=== PATIENT | female | born 1980 ===

== ENCOUNTER 2023-01-10 18:26 | Emergency (ER) | payer OTHER ==
--- OUTSIDE RECORDS SUMMARY | 2023-01-10 18:30 | XMS REPORT | Continuity of Care Document ---
:1980 Author Organization [facility] Address [address] [facility] [address] [place] [id number] Care Team Providers Name Role Phone KEFFER_A Attending Clinician Unavailable keffer_a Attending Clinician Unavailable KEFFER_A Admitting Clinician Unavailable emelynffer_a Admitting Clinician Unavailable Payers Payer Name Policy Type Policy Number Effective Date Expiration Date S ource Problems This patient has no known problems. Allergies, Adverse Reactions, Alerts This patient has no known allergies or adverse reactions. Medications This patient has no known medications. Procedures This patient has no known procedures. Encounters Start End Encounter Admission Attending Care Care Encounter Source Date/Time Date/Time Type Type Clinicians Facility Department ID 2022-08-22 2022-08-22 Outpatient [facility] [id number] [place] 00:00:00 00:00:00 [facility] 2020-06-21 2020-06-21 Outpatient [facility] [place] 02:25:00 02:25:00 [id number] Results This patient has no known results.
[2023-01-10] MEDS ORDERED: KETOROLAC 30 MG/ML INJ ONE (20:40)
[2023-01-10] MEDS ORDERED: FAMOTIDINE 20 MG/2 ML VIAL IV ONE (20:40)
[2023-01-10] MEDS ORDERED: ONDANSETRON 4 MG/2 ML VIAL ONE (20:40)
[2023-01-10] MEDS ORDERED: NA CHLORIDE 0.9% 1,000 ML ONE (20:40)
[2023-01-10 20:41] LABS: Absolute Lymphocytes (CBC) 1.8 K/uL (0.7-4.9); Hematocrit 37.3 % (36.0-45.0); Lymphocytes % 16.4 % (15.3-44.8); MCV 86.4 fL (80-100); MPV 8.1 fL (7.6-11.3); RBC Red Blood Cell Count 4.31 M/uL (3.86-4.86)
[2023-01-10 20:53] LABS: Specific Gravity 1.005 (1.005-1.030); Urine Bacteria <20 /HPF (<20); Urine Bilirubin NEGATIVE (Negative); Urine Blood Trace (Negative); Urine Clarity Turbid (Clear); Urine Color Colorless (Yellow); Urine Glucose NEGATIVE (Negative); Urine Protein NEGATIVE (Negative); Urine RBC <5 /HPF (None Seen); Urine Urobilinogen Normal (Normal)
[2023-01-10 20:57] LABS: Specific Gravity 1.005 (1.005-1.030)
[2023-01-10 20:59] LABS: Albumin 3.9 g/dL (3.4-5.0); Bilirubin Total 0.3 mg/dL (0.2-1.0); Potassium 3.3 mEq/L (3.5-5.1)
--- NOTE | 2023-01-10 21:28 | RAD REPORT ---
EXAM DESCRIPTION: CT - Abdomen Pelvis W Contrast - 01/10/2023 9:17 pm CLINICAL HISTORY: Abdominal pain COMPARISON: none. TECHNIQUE: Computed axial tomography of the abdomen pelvis was obtained. 95 cc Isovue-300 was admini stered intravenously. Oral contrast was not requested which limits evaluation of bowel and appendix All CT scans are performed using dose optimization technique as appropriate and may include automated exposure control or mA/KV adjustment according to patient size. FINDINGS: The liver, spleen, pancreas, adrenal and kidneys appear unremarkable. There is no evidence of diverticulitis. 5.6 centimeter right ovarian cystic mass contains a septation. No significant free fluid Mild bladder distention Moderate amount stool within the colon Small umbilical hernia IMPRESSION: 5.6 centimeter right ovarian cystic mass contains a septation. No significant free fluid . This probably represents a benign complex cyst. An ovarian cystadenoma is less likely. Followup ult rasound in 2 months recommended for re-evaluation Mild bladder distention
--- NOTE | 2023-01-10 22:34 | RAD REPORT ---
EXAM DESCRIPTION: US - Transvaginal Study Probe - 01/10/2023 10:16 pm CLINICAL HISTORY: Pelvic pain COMPARISON: none FINDINGS: The uterus measures 7 x 3 x 4 cm. A fibroid is not seen. The endometrial stripe measures 8 millimeters. A fibroid is not seen. Nabothian cysts within the cervix. Left ovary normal in size and echotexture. Left adnexal unremarkable 6 centimeter complex cystic structure right ovary containing septations and areas increased echogeni city. There is questionable internal blood flow. There is blood flow to the periphery. No evidence of torsion No significant free fluid is seen. IMPRESSION: 6 centimeter complex cystic mass right adnexa may represent a hemorrhagic cyst. An ovari an cystadenoma is another consideration. It is recommended patient a follow up ultrasound in 2 months for re-evaluation
--- NOTE | 2023-01-10 22:43 | ER ---
Nurse's Notes [facility] Name: Cammy Mchugh Age: 42 yrs Sex: Female : 1980 Arrival Date: 01/10/2023 Time: 18:26 Bed 13 Private MD: Diagnosis: Other ovarian cysts Presentation: 01/10 18:37 Chief complaint: Patient states: EMS toned out to home for eye pain \T\ abdominal pain ld1 since this morning. Nausea. Coronavirus screen: At this time, the client does not indicate any symptoms associated with coronavirus-19. Ebola Screen: No symptoms or risks identified at this time. Initial Sepsis Screen: Does the patient meet any 2 criteria? No. Patient's initial sepsis screen is negative. Does the patient have a suspected source of infection? No. Patient's initial sepsis screen is negative. Risk Assessment: Do you want to hurt yourself or someone else? Patient reports no desire to harm self or others. Onset of symptoms was January 10, 2023. 18:37 Method Of Arrival: EMS: [facility] ld1 18:37 Acuity: GUDELIA 3 ld1 Triage Assessment: 18:39 General: Appears in no apparent distress. comfortable, Behavior is calm, cooperative, ld1 appropriate for age. Pain: Complains of pain in abdomen Pain does not radiate. Pain currently is 5 out of 10 on a pain scale. Quality of pain is described as throbbing. EENT: No signs and/or symptoms were reported regarding the EENT system. Neuro: Level of Consciousness is awake, alert, obeys commands, Oriented to person, place, time, situation. Cardiovascular: Capillary refill < 3 seconds Patient's skin is warm and dry. Respiratory: Airway is patent Respiratory effort is even, unlabored. GI: Abdomen is flat, non-distended, Reports lower abdominal pain, nausea. : No signs and/or symptoms were reported regarding the genitourinary system. Derm: No signs and/or symptoms reported regarding the dermatologic system. Musculoskeletal: No signs and/or symptoms reported regarding the musculoskeletal system. 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 - Social history:: Smoking status: Patient denies any tobacco usage or history of. Patient/guardian denies using alcohol. Screenin:18 [facility] ED Fall Risk Assessment (Adult) History of falling in the last 3 months, nj1 including since admission No falls in past 3 months (0 pts) Confusion or Disorientation No (0 pts) Intoxicated or Sedated No (0 pts) Impaired Gait No (0 pts) Mobility Assist Device Used No (0 pt) Altered Elimination No (0 pt) Score/Fall Risk Level 0 - 2 = Low Risk Oriented to surroundings, Maintained a safe environment, Hourly rounding (assess needs \T\ fall precautionary measures) done. Abuse screen: Denies threats or abuse. Denies injuries from another. Nutritional screening: No deficits noted. Tuberculosis screening: No symptoms or risk factors identified. Assessment: 20:05 Reassessment: Patient appears in no apparent distress at this time. Patient and/or nj1 family updated on plan of care and expected duration. Pain level reassessed. Patient is alert, oriented x 3, equal unlabored respirations, skin warm/dry/pink. Pain: Complains of pain in abdomen Pain currently is 4 out of 10 on a pain scale. 20:05 GI: Reports lower abdominal pain, nausea. nj1 21:50 General: Appears in no apparent distress. Behavior is calm, cooperative. Pain: kd3 Complains of pain in abdomen. Neuro: Level of Consciousness is awake, alert, obeys commands, Oriented to person, place, time, situation. GI: Reports lower abdominal pain. Vital Signs: 18:37 BP 134 / 93; Pulse 115; Resp 18; Temp 98; Pulse Ox 100% on R/A; Weight 68.04 kg; Height ld1 5 ft. 7 in. ; Pain 5/10; 20:05 BP 135 / 97; Pulse 95; Resp 17; Pulse Ox 100% on R/A; Pain 4/10; nj1 22:52 BP 132 / 74; Pulse 84; Resp 19; Pulse Ox 100% on R/A; kd3 18:37 Body Mass Index 23.49 (68.04 kg, 170.18 cm) ld1 18:37 Pain Scale: Adult ld1 20:05 Pain Scale: Adult nj1 ED Course: 18:30 Patient arrived in ED. ts1 18:34 Jason Fox DO is Attending Physician. ms3 18:39 Triage completed. ld1 18:39 Arm band placed on right wrist. ld1 19:48 Nuria Agrawal, ANN is Primary Nurse. nj1 20:08 Inserted saline lock: 20 gauge in left antecubital area, using aseptic technique. Blood nj1 collected. 20:19 Patient has correct armband on for positive identification. Bed in low position. Call nj1 light in reach. 20:42 Attending Physician role handed off by Jason Fox DO ms3 20:42 Mykel Dunne MD is Attending Physician. ms3 21:19 CT Abd/Pelvis - IV Contrast Only In Process Unspecified. EDMS 21:51 No provider procedures requiring assistance completed. kd3 22:19 US Transvaginal Study (Probe) In Process Unspecified. EDMS 22:52 IV discontinued, intact, bleeding controlled, No redness/swelling at site. Pressure kd3 dressing applied. Administered Medications: 20:35 Drug: NS 0.9% IV 1000 ml Route: IV; Rate: 1 bolus; Site: left antecubital; nj1 22:52 Follow up: IV Status: Completed infusion kd3 20:35 Drug: TORadol - Ketorolac IVP 15 mg Route: IVP; Site: left antecubital; nj1 22:53 Follow up: Response: No adverse reaction; Pain is decreased kd3 20:35 Drug: Ondansetron IVP 4 mg Route: IVP; Site: left antecubital; nj1 22:53 Follow up: Response: No adverse reaction; Nausea is decreased kd3 20:37 Drug: Famotidine IVP 20 mg Route: IVP; Site: left antecubital; nj1 22:53 Follow up: Response: No adverse reaction kd3 Medication: 21:50 VIS not applicable for this client. kd3 Outcome: 22:43 Discharge ordered by . bs3 22:52 Discharged to home ambulatory. kd3 22:52 Condition: stable 22:52 Discharge instructions given to patient, Instructed on discharge instructions, follow up and referral plans. Demonstrated understanding of instructions, follow-up care. 22:53 Patient left the ED. kd3 Signatures: Dispatcher [employer] EDMS Jason Fox DO DO ms3 Paulette Fox RN RN ld1 Maxine Owens RN RN kd3 Mykel Dunne MD MD bs3 Nuria Agrawal RN RN nj1 Britt Antunez PAS PAS ts1
--- NOTE | 2023-01-10 22:43 | EDPHYS ---
Physician Documentation [facility] Name: Cammy Mchugh Age: 42 yrs Sex: Female : 1980 Arrival Date: 01/10/2023 Time: 18:26 Bed 13 Private MD: ED Physician Mykel Dunne HPI: 01/10 20:40 This 42 yrs old Female presents to ER via EMS with complaints of Nausea/Vomiting, Eye ms3 Pain. 20:40 42-year-old female past medical history of depression, hypertension presents via [place] ms3 EMS secondary to eyes burning and abdominal pain. Patient states the abdominal pain began this morning. Patient rates her abdominal pain a 5/10 and describes pain as being in the lower abdomen. Patient endorses nausea. Patient denies vomiting, diarrhea, fevers, chills. 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 - Social history:: Smoking status: Patient denies any tobacco usage or history of. Patient/guardian denies using alcohol. ROS: 20:40 Constitutional: Negative for fever, and chills. Neck: Negative for injury, pain, and ms3 swelling, Cardiovascular: Negative for chest pain, and palpitations. Respiratory: Negative for shortness of breath, cough, wheezing, and pleuritic chest pain. 20:40 Eyes: Positive for Burning eyes. 20:40 Abdomen/GI: Positive for abdominal pain, nausea, Negative for vomiting, diarrhea. 20:40 All other systems are negative. Exam: 20:40 Constitutional: This is a well developed, well nourished patient who is awake, alert, ms3 and in no acute distress. Head/Face: Normocephalic, atraumatic. Neck: Trachea midline, no cervical lymphadenopathy. Supple, full range of motion without nuchal rigidity, or vertebral point tenderness. No Meningismus. Chest/axilla: Normal chest wall appearance and motion. Nontender with no deformity. Cardiovascular: Regular rate and rhythm with a normal S1 and S2. No gallops, murmurs, or rubs. Normal PMI, no JVD. No pulse deficits. Respiratory: Lungs have equal breath sounds bilaterally, clear to auscultation and percussion. No rales, rhonchi or wheezes noted. No increased work of breathing, no retractions or nasal flaring. 20:40 Back: No spinal tenderness. No costovertebral tenderness. Full range of motion. Skin: Warm, dry with normal turgor. Normal color with no rashes, no lesions, and no evidence of cellulitis. 20:40 Abdomen/GI: Inspection: abdomen appears normal, Bowel sounds: normal, Palpation: moderate abdominal tenderness, in the right lower quadrant and left lower quadrant. Vital Signs: 18:37 BP 134 / 93; Pulse 115; Resp 18; Temp 98; Pulse Ox 100% on R/A; Weight 68.04 kg; Height ld1 5 ft. 7 in. ; Pain 5/10; 20:05 BP 135 / 97; Pulse 95; Resp 17; Pulse Ox 100% on R/A; Pain 4/10; nj1 22:52 BP 132 / 74; Pulse 84; Resp 19; Pulse Ox 100% on R/A; kd3 18:37 Body Mass Index 23.49 (68.04 kg, 170.18 cm) ld1 18:37 Pain Scale: Adult ld1 20:05 Pain Scale: Adult nj1 MDM: 18:49 Patient medically screened. ms3 20:40 Differential diagnosis: Nonspecific abd pain, gastritis, appendicitis, diverticulitis. ms3 Transition of care: After a detail discussion of the patient's case, care is transferred to Mykel Dunne MD. 22:42 Data reviewed: vital signs, nurses notes. 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 01/10 18:50 Order name: CBC with Diff; Complete Time: 21:38 ms3 01/10 18:50 Order name: CMP; Complete Time: 21:38 ms3 01/10 18:50 Order name: Lipase; Complete Time: 21:38 ms3 01/10 18:50 Order name: Test, Urine; Complete Time: 21:38 ms3 01/10 18:50 Order name: Urinalysis w/ reflexes; Complete Time: 21:38 ms3 01/10 18:50 Order name: CT Abd/Pelvis - IV Contrast Only; Complete Time: 21:38 ms3 01/10 21:38 Order name: US Transvaginal Study (Probe); Complete Time: 22:39 bs3 01/10 18:50 Order name: IV Saline Lock; Complete Time: 20:20 ms3 01/10 18:50 Order name: Labs collected and sent; Complete Time: 20:20 ms3 Administered Medications: 20:35 Drug: NS 0.9% IV 1000 ml Route: IV; Rate: 1 bolus; Site: left antecubital; nj1 22:52 Follow up: IV Status: Completed infusion kd3 20:35 Drug: TORadol - Ketorolac IVP 15 mg Route: IVP; Site: left antecubital; nj1 22:53 Follow up: Response: No adverse reaction; Pain is decreased kd3 20:35 Drug: Ondansetron IVP 4 mg Route: IVP; Site: left antecubital; nj1 22:53 Follow up: Response: No adverse reaction; Nausea is decreased kd3 20:37 Drug: Famotidine IVP 20 mg Route: IVP; Site: left antecubital; nj1 22:53 Follow up: Response: No adverse reaction kd3 Disposition Summary: 01/10/23 22:43 Discharge Ordered Location: Home bs3 Problem: new bs3 Symptoms: have improved bs3 Condition: Stable bs3 Diagnosis - Other ovarian cysts bs3 Followup: bs3 - With: Private Physician - When: 1 week - Reason: Re-evaluation by your physician Discharge Instructions: - Discharge Summary Sheet bs3 - Ovarian Cyst, [id number] bs3 Forms: - Medication Reconciliation Form bs3 - Thank You Letter bs3 - Antibiotic Education bs3 - Prescription Opioid Use bs3 Signatures: Dispatcher [employer] EDJason Montgomery DO DO ms3 Paulette Fox RN RN ld1 Mykel Dunne MD MD bs3 Nuria Agrawal RN RN nj1 Maxine Owens RN kd3
[2023-01-11 00:34] VITALS: TEMP 98; O2SAT 100
[2023-01-11 00:39] VITALS: BP 132/74
== END 2023-01-10 22:53 | disposition home or self-care (01) ==
LOC: ER 18:26
DX: N83.299 Other ovarian cyst, unspecified side (principal); I10 Essential (primary) hypertension; F32.A Depression, unspecified
CPT/HCPCS: 96361; 85025; 81001; 36415; 81025; 83690; 80053; 74177; 76830; 96375; 96374; 99284; Q9967; J2405; J7030